=== PATIENT | male | born 1985 | race Caucasian/White ===

== ENCOUNTER → 2020-05-02 08:37 | Outpatient (CLI) | payer OTHER, SELFPAY ==
--- NOTE | 2020-05-02 | DI.US.S_ITS ---
PROCEDURE: US SCROTUM INDICATIONS: Scrotal Varices TECHNIQUE: Real-time scanning was performed of the scrotum and testicles, with image documentation. Color and pulse Doppler interrogation was performed of both testicles. COMPARISON: None. FINDINGS: Right: Testicle is normal in size at 2.1 x 2.8 x 4.5 cm, and homogenous in echotexture. Epididymis is normal in overall size and morphology. No hydrocele or varicoceles. Overlying scrotal skin is normal in thickness. Left: Testicle is normal in size at 2.2 x 3.0 x 4.1 cm, and homogeneous in echotexture. Epididymis is normal in overall size and morphology. No hydrocele or varicoceles. Overlying scrotal skin is normal in thickness. Doppler: Color and pulse Doppler demonstrate normal and symmetric arterial flow in both testicles. IMPRESSION: Normal testicular ultrasound bilaterally, no evidence of testicular torsion. No varicoceles are found. Dictated by: Jose Alejandro Riggs M.D. on 05/02/2020 at 13:07 Approved by: Jose Alejandro Riggs M.D. on 05/02/2020 at 13:08
[2020-05-02 10:01] LABS: Follicle Stimulating Hormone 2.31 mIU/mL; Luteinizing Hormone 2.23 mIU/mL
[2020-05-02 10:15] LABS: Thyroid Stimulating Hormone 1.22 uIU/mL (0.47-4.68)
[2020-05-02 10:16] LABS: Estradiol, Total 26.9 pg/mL; Testosterone 567 ng/dL (132-813)
[2020-05-05 14:22] LABS: Testosterone, Free 12.6 pg/mL (8.7-25.1)
[2020-05-06 12:19] LABS: Prolactin 14.4 ng/mL (3.7-17.9)
== END ==
PROVIDERS: Referring Provider Internal Medicine Endocrinology, Diabetes & Metabolism; Visit Provider Internal Medicine Endocrinology, Diabetes & Metabolism
DX: I86.1 Scrotal varices (principal); E29.1 Testicular hypofunction
CPT/HCPCS: 36415; 76870; 82670; 83001; 83002; 84146; 84402; 84403; 84443